=== PATIENT | male | born 1970 | race African-American/Black ===

== ENCOUNTER → 2018-08-15 | Outpatient (CLI) | payer OTHER ==
[~2018-08-15] MED LIST: REGADENOSON 0.4 MG/5 ML DISP.SYRIN. IV ONE
--- NOTE | 2018-08-16 08:01 | PCVCIMAG ---
APPROVED REPORT Imaging Protocol: Rest Tc-99m/Stress Tc-99m 1 day Study performed: 08/15/2018 13:26:02 Indication: Dizziness, CM, Chest pain Patient Location: Out-Patient Stress Nurse: Lien Judd RN, Sparkle Allen RN HI Tech:Dung Hernández HITCB Ht: 6 ft 7 in Wt: 327 lbs BSA: 2.81 m2 HR: 80 bpm BP: 168/108 mmHg BMI: 36.8 Rhythm: Sinus Rhythm, T wave abnormality Medical History Medical History: Hyperlipidemia, HTN, CHF, Dm Insulin Medications: Crestor, Trulicity, Nexium, Insulin, Carvedilol, Irbesartan, Torsemide, Glimiperide, Aldactone Allergies: Contrast Dye Physical Disabilities: Dizziness Meds Held (24 hrs): Carvedilol Resting Data Rest SPECT myocardial perfusion imaging was performed in supine position 45 minutes following the intravenous injection of 16 mCi of Tc-99m Sestamibi. Time of rest injection: 1245 Date: 08/15/2018 Administration Route: IV Administration Site: Left Hand Pharmacologic Stress Pharmacologic stress test was performed by injecting Regadenoson 0.4 mg IV push over 10-15 seconds immediately followed by the intravenous injection of 48 mCi of Tc-99m Sestamibi. Time of stress injection: 1400 Date: 08/15/2018 Administration Route: IV Administration Site: Left Hand Gated Stress SPECT was performed 45 minutes after stress injection. The images were gated to evaluate regional wall motion and calculate left ventricular ejection fraction. Stress Test Details Stress Test: Pharmacologic stress testing performed using 0.4 mg of regadenoson per 5 mL given IV over 10 seconds. Reason for pharmacologic stress test: Dizziness, Anxiety. HRMax Heart Rate (APMHR): 171 bpm Resting HR: 80 bpmTarget HR (85% APMHR): 145 bpm Max HR Achieved: 96 bpm % of APMHR: 56 Recovery HR: 88 bpm BP Resting BP: 168/108 mmHg Max BP: 146/83 mmHg Recovery BP: 150/85 mmHg ECG Resting ECG: Sinus Rhythm, nonspecific ST-T abnormalities Stress ECG: Sinus Rhythm, NSSTT changes ST Change: None Maximum ST Deviation: 0 mm Arrhythmia: None Recovery ECG: Sinus Rhythm, nonspecific ST-T abnormalities Recovery ST Change: None Recovery ST Deviation: 0 mm Clinical Reason for Termination: Completed protocol Stress Symptoms: Dyspnea, Chest tightness, Lightheaded Exercise duration: min 55 sec Symptoms resolved with caffeine. Stress ECG Conclusion ECG: Non-ischemic Clinical: Non-ischemic Study Quality Study: Good Study Data Post stress, the left ventricular ejection was 37%.. SSS: 1 SRS: 2 SDS: 0 TID = 1.09. Perfusion No evidence of stress induced ischemia or prior myocardial infarction. Wall Motion Moderate chamber dilatation. Mild/moderately decreased left ventricular systolic function. Nuclear Conclusion No evidence of stress induced ischemia or prior myocardial infarction. Post stress, the left ventricular ejection was 37%. No prior study available for comparison. Interpreted by: eMle Bedoya MD Electronically Approved: 08/15/2018 18:26:48 <Conclusion> ECG: Non-ischemic Clinical: Non-ischemic
== END | disposition home or self-care (01) ==
LOC: PCVCIMAG 08:00 → EDSTATUS 08:25
PROVIDERS: ATTEND Internal Medicine
DX: R07.9 Chest pain, unspecified (principal); E78.5 Hyperlipidemia, unspecified; I11.0 Hypertensive heart disease with heart failure; I50.9 Heart failure, unspecified; E11.9 Type 2 diabetes mellitus without complications; Z79.4 Long term (current) use of insulin
CPT/HCPCS: 78452; 93017; A9500; J2785